=== PATIENT | female | born 1960 | race American Indian/Alaskan Native ===

== ENCOUNTER 2017-03-05 09:22 | Outpatient (CLI) | payer MEDICARE ==
--- NOTE | 2017-03-05 15:07 | Mammography Report ---
BILATERAL DIGITAL SCREENING MAMMOGRAM with CAD : 03/05/17 09:22:00 CLINICAL: Routine screening.Previously confirm cysts of the left breast. COMPARISON:10/29/15 FINDINGS: The breasts are heterogeneously dense, which may obscure small masses.Scattered bilateral benign calcifications. No mass, architectural distortion or suspicious calcifications. IMPRESSION: No mammographic evidence of malignancy. BI-RADS CATEGORY: 2 -- Benign RECOMMENDATION: Routine mammographic screening in one year. COMMENT: Patient follow-up letters are generated by our [email or web address] application.
== END 2017-03-05 09:23 | disposition home or self-care (01) ==
LOC: SPVWC 09:22
PROVIDERS: ATTEND Internal Medicine
DX: Z12.31 Encounter for screening mammogram for malignant neoplasm of breast (principal); I10 Essential (primary) hypertension; Z87.891 Personal history of nicotine dependence
CPT/HCPCS: 77067; G0202

== ENCOUNTER 2017-12-17 13:49 | Outpatient (CLI) | payer MEDICARE ==
--- NOTE | 2017-12-18 15:37 | Magnetic Resonance Report ---
MRI LEFT SHOULDER WITHOUT CONTRAST: 12/17/17 CLINICAL: Acute pain of the left shoulder. TECHNIQUE: Coronal T1, coronal T2, coronal proton density fat saturation, and axial gradient echo T* sequences on a 1.5 Lorie magnet. The patient terminated the exam prematurely before sagittal and T2 fat-sat sequences could be performed. FINDINGS: A limited examination without a full complement of sequences. Thickening and abnormal signal of the supraspinatus and infraspinatus tendons. Mild superior subluxation of the humeral head. Moderate glenohumeral joint osteoarthritis with a prominent inferior humeral osteophyte and prominent subchondral geode of the glenoid. 8 mm humeral cyst at the rotator cuff attachment at the greater tuberosity of the humerus. Downsloping of the acromion and mild acromioclavicular joint arthritis. The biceps tendon is grossly intact. No bone contusion or fracture. No joint effusion. IMPRESSION: 1. Abnormal rotator cuff with tendinosis and possible partial-thickness tear. 2. Glenohumeral joint osteoarthritis. 3. Incomplete examination.
== END 2017-12-17 13:50 | disposition home or self-care (01) ==
LOC: SPVIMAG 13:49
PROVIDERS: ATTEND Internal Medicine
DX: S43.002A Unspecified subluxation of left shoulder joint, initial encounter (principal); M19.012 Primary osteoarthritis, left shoulder; X58.XXXA Exposure to other specified factors, initial encounter; Y93.89 Activity, other specified; Y92.89 Other specified places as the place of occurrence of the external cause; Y99.8 Other external cause status

== ENCOUNTER 2018-04-01 08:31 | Day surgery (SDC) | payer MEDICARE ==
[~2018-04-01 08:31] MED LIST: ANCEF/STERILE WATER 2 GM/20 ML IV NR
--- NOTE | 2018-04-01 10:10 | Anesthesia Consultation ---
Anesthesia Consult and Med Hx Date of service: 04/01/18 - Airway Anesthetic Teeth Evaluation: Good ROM Head & Neck: Adequate Mental/Hyoid Distance: Adequate Mallampati Class: Class II Intubation Access Assessment: Good - Pulmonary Exam CTA: Yes - Cardiac Exam Cardiac Exam: RRR - Pre-Operative Health Status ASA Pre-Surgery Classification: ASA3 Proposed Anesthetic Plan: General Nerve Block: IS - Pulmonary Hx Smoking: Yes (1 PACK EVERY 2 WEEKS) Hx Sleep Apnea: No (NEETA PRE SCREEN HIGH RISK) - Cardiovascular System Hx Hypertension: Yes (1998) Hx Heart Murmur: Yes - Central Nervous System Hx Back Pain: Yes (NECK AND BACK PAIN) Hx Psychiatric Problems: Yes (PANIC ATTACKS) - Other Systems Hx Alcohol Use: Yes (STOPPED X 4 YRS) Hx Substance Use: Yes (CRACK COCAINE- STOPPED X 22 YRS) Hx Cancer: No
--- NOTE | 2018-04-01 10:10 | Anesthesia Day of Surgery ---
Anesthesia Day of Surgery - Day of Surgery Patient Examined: Yes Patient H&P Reviewed: Yes Patient is NPO: Yes
[2018-04-01] MEDS ORDERED: MARCAINE 0.5% 30 ML INFILTRATI ONE (10:55)
[2018-04-01] MEDS ORDERED: VERSED IV NR (11:00)
[2018-04-01] MEDS ORDERED: NEURONTIN PO NR (11:00)
[2018-04-01] MEDS ORDERED: DECADRON IV NR (11:00)
[2018-04-01] MEDS ORDERED: MARCAINE 0.5% INFILTRATI NR (11:00)
[2018-04-01] MEDS ORDERED: LACTATED RINGERS 1,000 ML IV SCH (11:00)
[2018-04-01] MEDS ORDERED: PEPCID PO NR (11:00)
[2018-04-01] MEDS ORDERED: DIPRIVAN 10 MG/ML IV ONE (11:48)
[2018-04-01] MEDS ORDERED: XYLOCAINE MPF 2% ONE (11:49)
[2018-04-01] MEDS ORDERED: DILAUDID ONE (11:49)
[2018-04-01] MEDS ORDERED: DECADRON ONE (11:50)
[2018-04-01] MEDS ORDERED: ZOFRAN ONE (11:50)
[2018-04-01] MEDS ORDERED: ZEMURON IV ONE (11:51)
[2018-04-01] MEDS ORDERED: NACL 0.9% IR ONE (12:13)
[2018-04-01] MEDS ORDERED: XYLOCAINE 1%/ EPI 1:100,000 INFILTRATI ONE (12:13)
[2018-04-01] MEDS ORDERED: XYLOCAINE 2%/ EPI 1:200,000 INFILTRATI ONE (12:58)
--- NOTE | 2018-04-01 14:15 | Short Stay Summary ---
Short Stay Documentation - Allergies and Medications Current Medications: Allergies No Known Allergies Allergy (Verified 03/25/15 00:55) Home Medications Medication Instructions Recorded Confirmed Last Taken Type HYDROcodone/ACETAMINOPHEN [Vicodin 1 tab PO Q6H PRN 10/04/14 04/01/18 03/31/18 History HP 10-300 mg] Lisinopril 10 mg PO DAILY 10/04/14 02/24/18 04/01/18 07:00 History Pravastatin [Pravachol] 20 mg PO QHS 10/04/14 04/01/18 03/29/18 History amLODIPine [Norvasc] 10 mg PO DAILY 10/04/14 02/24/18 04/01/18 07:00 History Escitalopram [Lexapro] 5 mg PO PRN PRN 02/24/18 04/01/18 03/30/18 History Furosemide [Lasix] 20 mg PO PRN PRN 02/24/18 04/01/18 03/29/18 History Ibuprofen [Motrin] 800 mg PO Q8HR PRN 02/24/18 04/01/18 03/24/18 History Active Medications Cefazolin Sodium (Ancef/Sterile Water 2 Gm/20 Ml) 2 gm IV PREOP NR Stop: 04/01/18 23:59 Lactated Ringer's (Lactated Ringers) 1,000 mls @ 100 mls/hr IV DIRECT INDIGO Last Admin: 04/01/18 10:31 Dose: 100 mls/hr Midazolam HCl (Versed) 2 mg IV PREOP NR Stop: 04/01/18 23:59 Last Admin: 04/01/18 11:04 Dose: 2 mg Short Stay Discharge Plan Activity: advance as tolerated Diet: regular, advance as tolerated Wound: keep clean and dry, per your surgeon's advice Special Instructions: smoking cessation, physical therapy Additional Instructions: start PT tommorrow follow DC instruction sheet Follow up with: DEL TORIBIO MD [Primary Care Provider] - 7 Days PEBBLES GREEN MD [Staff Physician] - 14 Days
[2018-04-01 19:30] VITALS: BP 123/62
--- NOTE | 2018-04-02 01:34 | Operative Report ---
PREOPERATIVE DIAGNOSES: 1. Partial tear rotator cuff. 2. Impingement syndrome of the left shoulder; partial tear rotator cuff, left shoulder. 2. Degenerative joint disease, left shoulder region. POSTOPERATIVE DIAGNOSES: 1. Biceps tendon tear, superior labrum anterior and posterior tear left shoulder with [id number] osteoarthritis, left shoulder joint. 2. Severe and significant subacromial bursitis, bursal hypertrophy, left shoulder region. 3. Impingement syndrome, left shoulder joint. 4. Partial fraying of the rotator cuff tissue with synovial hypertrophy with synovial proliferation with partial fraying of the articular side rotator cuff tissue. DETAILS OF THE OPERATIVE REPORT: The patient was taken to the operating room. After smooth general endotracheal anesthesia, all the bony prominences were carefully padded, placed in the beach chair position. Left shoulder and left upper extremity were prepped and draped in sterile fashion. The patient was given 2 grams Ancef half an hour before the procedure. Left shoulder and left upper extremity prepped and draped in sterile fashion. Anatomical landmarks were drawn out. Portal sites were marked. Posterior portal needle was placed in the left shoulder joint and joint insufflated with 30 mL of normal saline. The posterior portal was created and the arthroscope introduced into the left shoulder glenohumeral joint. Diagnostic arthroscopy was performed. It was noticed there was a significant tear of the labrum and the biceps tendon and a significant amount of arthritis of the left shoulder glenohumeral joint, significant arthritis noticed. There was about grade 4 arthritic changes in about 30% to 40% of the glenoid with grade 2 changes in most of it. The shoulder humeral head had about grade 4 changes about 30% to 40%, with grade 2 changes in the rest of it. Some areas of cartilage delamination seen as well. Under direct visualization, anterosuperior portal was created. Given the significant tear of the labrum and the biceps tendon area, we recommended biceps tenotomy was performed and debridement of the torn labral tissue was performed. Significant synovial hypertrophy perforation was noted and an extensive debridement was performed. Bone was used to cauterize any bleeding spots. Very minimal fraying and degenerative fraying and small tear of the articular side of the tissue was noticed, it is mostly degenerative type. No significant air noticed on the articular side. The frayed tissue of the articular side of the rotator cuff at its insertion was just debrided off. We noticed that the rotator cuff was as such intact. There was some fraying of the tissue in the superior subscap area. However, subscap attachment was intact and moved as a unit. The attention was drawn in the subacromial space. Arthroscope introduced into the subacromial space. Under direct visualization, lateral portal was created. We noted a significant amount of subacromial bursitis and bursal hypertrophy and bursal proliferation. Using synovial resector and ____, the bursectomy was performed. There was bone spur seen underneath the acromion, type 2 ____ morphology and barrel keiko 4 mm was used to perform acromioplasty. Loose floating synovial tissue in the bursal tissue and the bone debris was then suctioned out using shaver. Extensive bursectomy was performed along with acromioplasty, release of the coracoacromial ligament was performed as well. Initially, there was significant amount of bursal hypertrophy, perforation was noticed and after thorough debridement and bursectomy and subacromial decompression, there was good subacromial space seen. Necessary pictures were taken. The cuff was intact. The fluid was evacuated and then after this, the pictures were taken. Fluid was evacuated and portal sites were then closed with 3-0 nylon interrupted sutures. Dressing was done with Xeroform, 4 x 4s, ABD and a tape. Arm sling was applied. The patient tolerated the procedure very well, shifted to recovery room in stable condition. Sponge and needle count was correct. JOB# [id number] FABI/KAYLEN
== END 2018-04-01 17:15 | disposition home or self-care (01) ==
LOC: OR 08:31
PROVIDERS: ATTEND Orthopaedic Surgery
DX: S43.432A Superior glenoid labrum lesion of left shoulder, initial encounter (principal); S46.012A Strain of muscle(s) and tendon(s) of the rotator cuff of left shoulder, initial encounter; S46.212A Strain of muscle, fascia and tendon of other parts of biceps, left arm, initial encounter; M75.52 Bursitis of left shoulder; M75.42 Impingement syndrome of left shoulder; M19.012 Primary osteoarthritis, left shoulder; I10 Essential (primary) hypertension; Z87.891 Personal history of nicotine dependence; Z79.899 Other long term (current) drug therapy; X58.XXXA Exposure to other specified factors, initial encounter; Y93.89 Activity, other specified; Y92.89 Other specified places as the place of occurrence of the external cause; Y99.8 Other external cause status
CPT/HCPCS: 29823; 29826; 82962; A4217; J0690; J1100; J1170; J2250; J2405; J2704; J7120

== ENCOUNTER 2019-01-05 10:47 | Outpatient (CLI) | payer MEDICARE ==
--- NOTE | 2019-01-05 16:22 | Mammography Report ---
BILATERAL DIGITAL SCREENING MAMMOGRAM with CAD : 01/05/19 10:47:00 CLINICAL: Routine screening. COMPARISON:03/05/17 FINDINGS: The breasts are heterogeneously dense, which may obscure small masses.Scattered bilateral benign calcifications. No mass, architectural distortion or suspicious calcifications. IMPRESSION: No mammographic evidence of malignancy. BI-RADS CATEGORY: 2 -- Benign RECOMMENDATION: Routine mammographic screening in one year. COMMENT: Patient follow-up letters are generated by our [employer] application.
== END 2019-01-05 10:48 | disposition home or self-care (01) ==
LOC: SPVWC 10:47
PROVIDERS: ATTEND Internal Medicine
DX: Z12.31 Encounter for screening mammogram for malignant neoplasm of breast (principal); E78.00 Pure hypercholesterolemia, unspecified; I10 Essential (primary) hypertension; Z90.710 Acquired absence of both cervix and uterus; Z90.49 Acquired absence of other specified parts of digestive tract; Z87.891 Personal history of nicotine dependence
CPT/HCPCS: 77067